=== PATIENT | female | born 1995 | race Caucasian/White ===

== ENCOUNTER 2019-11-24 15:23 | Outpatient (CLI) | payer MEDICAID ==
--- NOTE | 2019-11-17 08:45 | NUR ---
Patient ambulatoy onto unit for scheduled non stress test for twin gestation. Patient reports active movement x2, denies vaginal bleeding, leaking of fluid, or contractions. Patient denies questions or concerns. EFMs on, VS taken. FHR appropriate for gestational age x2. Discharge orders received by for weekly NST. Patient ambulatory off of unit with return precautions.
[2019-11-24] VITALS (9 sets, daily range): BP systolic 140–170; BP diastolic 82–95; PULSE 16–112; TEMP 98–98.2
[~2019-11-24] VITALS: Ht 162.6 cm; Wt 79.8 kg
[~2019-11-24 15:23] MED LIST: ACTIGALL 300MG300 MG PO; CEPHALEXIN500 M1 PO; LEXAPRO20 MG PO; NATURAL IRON65 MG; PRENATAL TABLET PO
--- NOTE | 2019-11-24 15:30 | NUR ---
1530-G2L0 Ambulatory to LR 6 for scheduled NST. Reports good movement but reports increased swelling in feet, hands and legs. Denies headache but reports "floaters all the time even outside ." placed on EFM. BP 163/108, repositoned LL and rechecked 151/86, FHR for twin A and B reactive. Dr. Blackburn updated, orders to give betamethasone now, see EMAR. 1630-Dr. Blackburn updated on BP, see physician notification. 1715-Dr. Blackburn on unit. in to see patient. 1716-PO labetalol given by Zack Bowling see EMAR. 1800-Dr. Blackburn on unit. Reviewes new order for 24 hour urine and plan of care for patient with this RN. 184-Reported off to JENNIFER Kang 2849-Dr. Seals updated on BP and recieved new order for 100mg labetalol now and change am dose to 200mg labetalol BID. See physician notification. JENNIFER Kang updated.
[2019-11-24 15:52] LABS: BASO % 0.3 % (0.0-2.0); EOS # 0.1 (0.0-0.7); EOS % 0.9 % (0-4.0); GRAN # 4.5 (1.4-6.5); GRAN % 65.5 % (42.2-75.2); LYMPH # 1.5 (1.2-3.4); LYMPH % 22.1 % (20.0-51.0); MEAN CELL VOLUME 83 fl (80.0-100.0); MEAN CORPUSCULAR HGB CONC 33 g/dl (33.0-37.0); MEAN PLATELET VOLUME 10.2 fl (7.4-10.4); MONO # 0.7 (0.1-0.6); MONO % 10.3 % (1.7-9.3); PLATELET COUNT 277 K/mm3 (130-400); RED BLOOD COUNT 3.18 M/mm3 (4.10-5.30); REDCELL DISTRIBUTION WIDTH-CV 13.2 % (11.5-14.5)
[2019-11-24 15:58] LABS: HEMATOCRIT 26.5 % (37.0-47.0); HEMOGLOBIN 8.8 g/dl (12.5-16.0); MEAN CORPUSCULAR HEMOGLOBIN 28 pg (27.0-31.0)
[2019-11-24 16:02] LABS: BILIRUBIN,TOTAL 0.6 mg/dL (0.0-1.0); CALCIUM 9.2 mg/dL (8.4-10.2); CREATININE, serum 0.87 (0.52-1.25); POTASSIUM 4.5 mmol/L (3.4-5.0); TOTAL PROTEIN 6.3 gm/dL (6.4-8.2)
--- NOTE | 2019-11-24 19:00 | NUR ---
Voids 1st urine for 24 hr urine. urine discarded. Start 24 hr urine @1900. Ambulatory to room 214. Plan of care reviewed, 24hr urine collection. Pt verbalizes understanding.
[2019-11-25] VITALS (10 sets, daily range): BP systolic 125–162; BP diastolic 76–94; PULSE 88–108; TEMP 97–98
--- NOTE | 2019-11-25 00:10 | NUR ---
Dr Seals on unit, views EFM tracing, states "it's ok"
--- NOTE | 2019-11-25 02:15 | NUR ---
Pt reports " I have a headache it came on fast and it's bad" BP 121/77, HR 93Tylenol and Benadryl given, lights dimmed.
[2019-11-25] MEDS ORDERED: TRANDATE 200MG200 MG PO (07:15)
[2019-11-25 17:57] LABS: MEAN CELL VOLUME 86 fl (80.0-100.0); MEAN CORPUSCULAR HGB CONC 32 g/dl (33.0-37.0); MEAN PLATELET VOLUME 10.6 fl (7.4-10.4); PLATELET COUNT 237 K/mm3 (130-400); RED BLOOD COUNT 2.84 M/mm3 (4.10-5.30); REDCELL DISTRIBUTION WIDTH-CV 13.3 % (11.5-14.5)
[2019-11-25 18:03] LABS: ALBUMIN 2.8 gm/dL (3.5-5.0); BILIRUBIN,TOTAL 0.4 mg/dL (0.0-1.0); CALCIUM 8.3 mg/dL (8.4-10.2); CREATININE, serum 0.79 (0.52-1.25); POTASSIUM 3.9 mmol/L (3.4-5.0); TOTAL PROTEIN 5.8 gm/dL (6.4-8.2)
[2019-11-25 18:05] LABS: HEMATOCRIT 24.3 % (37.0-47.0); HEMOGLOBIN 7.8 g/dl (12.5-16.0); MEAN CORPUSCULAR HEMOGLOBIN 27 pg (27.0-31.0)
[2019-11-25 19:49] LABS: URINE TOTAL VOLUME 750 mL
[2019-11-25 22:24] LABS: URINE CREATININE CLEARANCE 116.4 mL/min (88-128)
== END 2019-11-25 20:10 | disposition home or self-care (01) ==
LOC: LDRO 15:23 → OB 15:23 → LDRO 19:10 → OB 11-25 20:10
PROVIDERS: Obstetrics & Gynecology
DX: O30.93 Multiple gestation, unspecified, third trimester (principal); Z3A.32 32 weeks gestation of pregnancy
CPT/HCPCS: OP; J0702

== ENCOUNTER 2019-11-27 13:31 | Outpatient (CLI) | payer MEDICAID ==
[~2019-11-27] VITALS: Ht 162.6 cm; Wt 80.0 kg
[2019-11-27] VITALS (9 sets, daily range): BP systolic 133–181; BP diastolic 11–98; PULSE 89–102; TEMP 97.9
[~2019-11-27 13:31] MED LIST changes: +TRANDATE 200MG200 MG PO
--- NOTE | 2019-11-27 13:40 | NUR ---
PATIENT HERE TO LR 5 FOR CHECK. PATIENT CHANGED INTO GOWN, ON EFM, ASSSESMENT COMPLETE, VITALS OBTAINED. PATIENT FEELING BOTH BABIES MOVE, PATIENT DENIES CONTRACTIONS, LEAKING OF FLUID, OR BLEEDING.
[2019-11-27 14:57] LABS: MEAN CELL VOLUME 85 fl (80.0-100.0); MEAN CORPUSCULAR HGB CONC 33 g/dl (33.0-37.0); MEAN PLATELET VOLUME 10.2 fl (7.4-10.4); PLATELET COUNT 306 K/mm3 (130-400); RED BLOOD COUNT 3.16 M/mm3 (4.10-5.30); REDCELL DISTRIBUTION WIDTH-CV 13.2 % (11.5-14.5)
[2019-11-27 15:07] LABS: ALBUMIN 3.2 gm/dL (3.5-5.0); BILIRUBIN,TOTAL 0.5 mg/dL (0.0-1.0); CALCIUM 8.4 mg/dL (8.4-10.2); CREATININE, serum 0.9 (0.52-1.25); POTASSIUM 4.1 mmol/L (3.4-5.0); TOTAL PROTEIN 6.4 gm/dL (6.4-8.2)
[2019-11-27 15:09] LABS: HEMATOCRIT 26.9 % (37.0-47.0); HEMOGLOBIN 8.8 g/dl (12.5-16.0); MEAN CORPUSCULAR HEMOGLOBIN 28 pg (27.0-31.0)
--- NOTE | 2019-11-27 15:51 | NUR ---
250 ML LR FLUID BOLUS FINISHED, LR AT 50 MLS/ HR
--- NOTE | 2019-11-27 17:02 | NUR ---
TRANSPORT TEAM CALLED AND SAID THEY ARE 15 MINUTES AWAY
--- NOTE | 2019-11-27 17:20 | NUR ---
TRANSFER TEAM ON UNIT, REPORT GIVEN TO TEAM
--- NOTE | 2019-11-27 17:30 | NUR ---
PATIENT OFF EFM, ON [facility] MONITORS. 1750- MAG AND LR STOPPED, [facility] FLUIDS HUNG BY THEIR STAFF. PATIENT ON STRECHER AND OUT OF LABOR AND DELIVERY AT 1750
== END 2019-11-27 17:50 | disposition short-term general hospital (02) ==
LOC: LDRO 13:31 → LDR 14:33
PROVIDERS: Obstetrics & Gynecology
DX: O26.893 Other specified pregnancy related conditions, third trimester (principal); R82.90 Unspecified abnormal findings in urine; Z3A.34 34 weeks gestation of pregnancy
CPT/HCPCS: J3475; J7120

== ENCOUNTER 2023-06-22 14:46 | Outpatient (CLI) | payer MEDICAID ==
[~2023-06-22] VITALS: Ht 157.5 cm; Wt 73.2 kg
[2023-06-22] VITALS (10 sets, daily range): BP systolic 150–169; BP diastolic 92–103; PULSE 97–109; TEMP 97.8–98.2
[2023-06-22] MEDS ORDERED: LR 1,000 ML IV PRN (15:30)
[2023-06-22 15:56] LABS: COLLECTION METHOD CATHETER
[2023-06-22 15:59] LABS: BASO # 0.1 K/mm3 (0.0-0.2); BASO % 0.5 % (0.0-2.0); EOS % 0.2 % (0.0-4.0); GRAN # 9.9 K/mm3 (1.4-6.5); GRAN % 76.7 % (42.2-75.2); LYMPH % 15.6 % (20.0-51.0); MEAN CELL VOLUME 68 fl (80.0-100.0); MEAN CORPUSCULAR HGB CONC 31 g/dl (33.0-37.0); MEAN PLATELET VOLUME 9.7 fl (7.4-10.4); MONO # 0.8 K/mm3 (0.1-0.6); PLATELET COUNT 356 K/mm3 (130-400); RED BLOOD COUNT 3.88 M/mm3 (4.10-5.30); REDCELL DISTRIBUTION WIDTH-CV 18.6 % (11.5-14.5)
[2023-06-22 16:02] LABS: HEMATOCRIT 26.4 % (37.0-47.0); HEMOGLOBIN 8.1 g/dl (12.5-16.0); MEAN CORPUSCULAR HEMOGLOBIN 21 pg (27-31)
[2023-06-22 16:06] LABS: URINE APPEARANCE TURBID (CLEAR/HAZY); URINE BLOOD TRACE (NEGATIVE); URINE COLOR Dark Yellow (YELLOW); URINE GLUCOSE TRACE (NEGATIVE); URINE KETONE TRACE (NEGATIVE); URINE NITRATE NEGATIVE (NEGATIVE); URINE PROTEIN(semi-quant) 4+ (NEGATIVE)
[2023-06-22 16:15] LABS: TRICYCLIC ANTIDEPRESS URINE NEGATIVE (NEGATIVE)
[2023-06-22 16:17] LABS: ALBUMIN 1.6 g/dL (3.5-5.0); BILIRUBIN,TOTAL 0.2 mg/dL (0.2-1.2); CALCIUM 8.1 mg/dL (8.4-10.2); CREATININE, serum 0.75 mg/dL (0.57-1.11); POTASSIUM 3.6 mEq/L (3.5-4.5); TOTAL PROTEIN 5.7 g/dl (6.2-8.1)
--- NOTE | 2023-06-22 16:35 | NUR ---
1450 PATIENT HERE FROM HOME WITH COMPLAINTS OF HEADACHE AND NOT FEELING WELL. PATIENT ALSO STATES SHE HAS BEEN TAKING BP AT HOME AND LAST COUPLE DAYS THEY HAVE BEEN HIGH (175/102, 161/109 RANGE). PATIENT ALSO STATES HER LAST 2 PREGNACY HAVE ENDED IN EMERGENCY C SECTION DUE TO HIGH BLOOD PRESSURE. PATIENT HAS HAD NO PRENATEL CARE WITH THIS OR LAST PREGNACY. FIRST PREGNACY WAS TWINS AT 34 WEEKS IN 2019, AND LAST 37 WEEKS IN 2021. PATIENT ALSO STATES HISTORY OF DRUG USE AND LAST USED MARIJUANA AND METH 3 DAYS AGO. PATIENT HAS HEALTH PROMOTION SPECIALIST AT BEDSIDE. EFM ON FHT 120 BABY VERY ACTIVE. NO CONTRACTIONS ON MONITOR OR PALPATED. BP 156/93/ DR SMITH CALLED WITH ALL ABOVE INFORMATION AND ORDERS GIVEN FOR FULL OB PANEL, CBC, CMP , UA, UDS, US FOR GROWTH, GBS SWAB.
[2023-06-22 16:45] LABS: HIV 1/2 Antibodies Non-Reactive; HIV-1p24 Antigen Non-Reactive
[2023-06-22] MEDS ORDERED: Betamethasone Acetate/Na Phos 6 MG/ML 5 ML MDV IM ONE (16:55)
--- NOTE | 2023-06-22 17:03 | NUR ---
1530 GBS SWAB VAGINAL/RECTAL DONE AT THIS TIME BY THIS NURSE. LAB AT BEDSIDE TO DRAW COMPLETE OB PANEL.FHT 120 ACTIVE. NO CONTRACTIONS. FULL ASSESSMENT DONE AT THIS TIME. PATIENT STATES SHE HAS HAD SOME HISTORY OF A CARDIAC PROBLEM AFTER BOTH DELIVERIES THAT HAS PUT HER IN ICU. ALL BABIES HAVE BEEN ADOPTED OUT ALSO.
--- NOTE | 2023-06-22 17:08 | NUR ---
1545 US AT BEDSIDE. EFM OFF AT THIS TIME. DR DAMON CALLED WITH ALL UPDATES AT THIS TIME. ORDERS GIVEN FOR IVF.
[2023-06-22 17:10] LABS: URINE BACTERIA MANY /hpf (NONE SEEN); URINE WBC 20-50 /hpf (0-2)
--- NOTE | 2023-06-22 17:11 | NUR ---
1620 IV STARTED IN RIGHT HAND. LR 1000 CC STARTED AT THIS TIME PER ORDER/ ALL LAB RESULTS CALLED TO DR DAMON AT THIS TIME. IS CALLING RADIOLOGY FOR US RESULTS AND WILL GET BACK TO ME.
--- NOTE | 2023-06-22 17:13 | NUR ---
1700 SVE /-3 BALLOTABLE BY THIS NURSE PER DR. BURROWS. BETAMETHASONE 12MH IM TO RIGHT GLUT AT THIS TIME. FHT 125 BABY VERY ACTIVE. NO CONTRACTIONS. PATIENTS CASE WROKER AND FOB AT BEDSIDE. DR DAMON WILL BE HERE SOON TO TALK TO PATIENT ABOUT OPTIONS.
--- NOTE | 2023-06-22 17:51 | NUR ---
1730 DR DAMON AT BEDSIDE TO TALK WITH PATIENT TO GET COMPLETE HISTORY AND DISCUSS OPTIONS WITH PATIENT. DR WILL TRY TO TRANSFER TO [facility] YO SOCIAL REASONS SINCE THATS WHERE CARE AND SUPPORT SYSTEM LIVE. FOLWY PLACED AT THIS TIME PER DR DAMON ORDERS. PATIENT TOLERATES WELL. INSTRUCTED TO STAY NPO UNTIL TRANSFER TO [facility].
[2023-06-22] MEDS ORDERED: Magnesium Sulfate 4% 50 ML IV PRN (18:00)
[2023-06-22] MEDS ORDERED: Magnesium Sulfate 4% 500 ML IV SCH (18:00)
[2023-06-22] MEDS ORDERED: LR 1,000 ML IV SCH (18:00)
[2023-06-22] MEDS ORDERED: Magnesium Sulfate 8% 50 ML IV ONE (18:00)
[2023-06-22] MEDS ORDERED: Calcium Gluconate 1,000 MG (4.65 mEq)/10 ML VIAL IV PRN (18:00)
--- NOTE | 2023-06-22 18:36 | NUR ---
1820 2ND IV STARTED IN LEFT HAND. MAG SULFATE 4GRAM IV PER ORDER AND PROTOCOL AT 1820. PATIENT TOLERATES WELL. TRANSFER PAPERWORK SIGNED BY PATIENT.
--- NOTE | 2023-06-22 18:47 | NUR ---
1840 #2 BAG MAG SUL SET FOR 2G/HR OR 50 CC/HR LR AT 75 CC/HR AT THIS TIME. WAITING FOR TRANSFER.
--- NOTE | 2023-06-22 19:19 | NUR ---
1899 REFLEXS NORMAL SAO2 100% REPORT GIVEN TO AMBULANCE CREW, DIDACTIC PROGRAM IN DIETETICS DIRECTOR. PATIENT TRANSFERRED TO [facility]. FHT 125 WHEN EFM OFF. 1919 REPORT CALLED AND GIVEN TO REJI CHARGE NURSE AT [facility].
[2023-06-22 23:21] LABS: HEPATITIS B SURFACE ANTIGEN Negative (Negative)
== END 2023-06-22 19:10 | disposition short-term general hospital (02) ==
LOC: LDRO 14:46
PROVIDERS: Student in an Organized Health Care Education/Training Program
DX: O41.03X0 Oligohydramnios, third trimester, not applicable or unspecified (principal); Z3A.33 33 weeks gestation of pregnancy
CPT/HCPCS: J0702; J3475; J7120